=== PATIENT | male | born 1945 | race Two or more races ===

== ENCOUNTER 2021-03-21 13:19 | Emergency (ER) | payer MEDICARE ==
[~2021-03-21] VITALS: Ht 175.3 cm; Wt 76.2 kg
[2021-03-21 13:28] VITALS: BP 116/59
== END 2021-03-21 14:43 | disposition left against medical advice (07) ==
LOC: EDBD 13:19 → ER 13:19
DX: R79.9 Abnormal finding of blood chemistry, unspecified (principal); Z53.21 Procedure and treatment not carried out due to patient leaving prior to being seen by health care provider
CPT/HCPCS: 71045

== ENCOUNTER 2021-03-22 07:43 | Inpatient (IN) | payer MEDICARE ==
[~2021-03-22] VITALS: Ht 175.3 cm; Wt 34.6 kg
[2021-03-22] VITALS (8 sets, daily range): BP systolic 98–120; BP diastolic 59–69
[2021-03-22] MEDS ORDERED: SODIUM CHLORIDE 0.9% 1,000 ML IVB ONE (09:45)
[2021-03-22 10:30] LABS: Basophils # (auto) 0 10 ^3/uL (0-0.2); Eosinophils # (auto) 0 10 ^3/uL (0-0.8); Lymphocytes # (auto) 0.5 10 ^3/uL (0.4-5.4); Mean Corpuscular Hemoglobin 19.5 pg (28.0-32.0); Monocytes # (auto) 0.5 10 ^3/uL (0-1.3); Neutrophils # (auto) 4.7 10 ^3/uL (1.6-8.6); White Blood Cell 5.7 10^3/uL (4.4-10.8)
[2021-03-22 10:33] LABS: INR 1.24 (0.9-1.15); Partial Thromboplastin Time 31.5 sec (23.6-33.0)
[2021-03-22 10:34] LABS: Basophils % (auto) 0.7 % (0.0-2.0); Eosinophils % (auto) 0.8 % (0.0-7.0); Hematocrit 20.2 % (41.0-53.0); Lymphocytes % (auto) 8.6 % (10.0-50.0); Mean Corpuscular Hgb Conc. 31.3 g/dL (32.0-36.0); Mean Corpuscular Volume 62.2 fL (80.0-100.0); Monocytes % (auto) 8.1 % (0.0-12.0); Neutrophils % (auto) 81.8 % (37.0-80.0); Nucleated Red Blood Cells % 0.4 %; Red Blood Cells 3.25 10^6/uL (4.5-5.90); Red Cell Distribution Width 19.4 % (11.8-14.3)
[2021-03-22 11:04] LABS: Albumin 4.1 g/dL (3.4-5.0); Calcium 9.6 mg/dL (8.5-10.1); Potassium 3.8 mmol/L (3.5-5.1)
[2021-03-22 11:05] LABS: Hemoglobin 6.3 g/dL (13.5-17.5)
[2021-03-22 11:10] LABS: BUN/Creatinine Ratio 18.5; Bilirubin, Total 1.9 mg/dL (0.2-1.0); Total Protein 6.6 g/dL (6.4-8.2)
[2021-03-22 11:41] LABS: Magnesium 2.6 mg/dL (1.6-2.6)
[2021-03-22 12:48] LABS: Urine Bacteria NONE SEEN /hpf (None Seen); Urine Blood TRACE /uL (Negative); Urine Hyaline Cast FEW /lpf (0 - 2); Urine Specific Gravity 1.008 (1.001-1.035); Urine WBC 1 /hpf (0 - 3)
[2021-03-22] MEDS ORDERED: ADENOSINE 6 MG/2 ML INJ IV ONE ×3 (21:15→22:00)
[2021-03-22] MEDS ORDERED: dilTIAZem 25 MG/5 ML VIAL IV ONE (22:30)
[2021-03-22 22:53] LABS: Basophils # (auto) 0 10 ^3/uL (0-0.2); Eosinophils # (auto) 0 10 ^3/uL (0-0.8); Hematocrit 21.8 % (41.0-53.0); Hemoglobin 7.2 g/dL (13.5-17.5); Lymphocytes # (auto) 0.4 10 ^3/uL (0.4-5.4); Monocytes # (auto) 0.3 10 ^3/uL (0-1.3); Neutrophils # (auto) 2.8 10 ^3/uL (1.6-8.6); White Blood Cell 3.6 10^3/uL (4.4-10.8)
[2021-03-22 22:55] LABS: Basophils % (auto) 0.9 % (0.0-2.0); Lymphocytes % (auto) 11.6 % (10.0-50.0); Mean Corpuscular Hemoglobin 21.3 pg (28.0-32.0); Mean Corpuscular Volume 64.7 fL (80.0-100.0); Monocytes % (auto) 7.5 % (0.0-12.0); Nucleated Red Blood Cells % 0.4 %; Red Blood Cells 3.37 10^6/uL (4.5-5.90)
[2021-03-22 22:56] LABS: Red Cell Distribution Width 24.1 % (11.8-14.3)
[2021-03-22] MEDS ORDERED: ACETAMINOPHEN 325 MG TAB PO PRN (23:00)
[2021-03-22] MEDS ORDERED: DOCUSATE SOD 100 MG CAP PO PRN (23:00)
[2021-03-22] MEDS ORDERED: HYDROcodone-ACET 5/325MG TAB PO PRN (23:00)
[2021-03-22] MEDS: dilTIAZem 125mg/125ml BAG KIT 100 ML IV SCH (23:40)
[2021-03-23] MEDS ORDERED: MORPHINE SULFATE INJECTION 2 MG/ML SYRG IV PRN
[2021-03-23] MEDS ORDERED: NITROGLYCERIN 0.4 MG SL TAB SL PRN
[2021-03-23 01:27] LABS: Albumin 3.3 g/dL (3.4-5.0); Calcium 8.1 mg/dL (8.5-10.1); Potassium 3.8 mmol/L (3.5-5.1)
[2021-03-23 01:32] LABS: BUN/Creatinine Ratio 16.9; Bilirubin, Total 1.7 mg/dL (0.2-1.0); Total Protein 5.7 g/dL (6.4-8.2)
[2021-03-23] MEDS: SODIUM CHLOR 0.9% PF (SALINE LOCK) 10ML VIAL/SYR IV SCH ×3 (06:20→22:02)
[2021-03-23 07:08] LABS: Basophils # (auto) 0 10 ^3/uL (0-0.2); Basophils % (auto) 0.9 % (0.0-2.0); Eosinophils # (auto) 0 10 ^3/uL (0-0.8); Eosinophils % (auto) 1.2 % (0.0-7.0); Hematocrit 22.2 % (41.0-53.0); Hemoglobin 7.2 g/dL (13.5-17.5); Lymphocytes # (auto) 0.4 10 ^3/uL (0.4-5.4); Lymphocytes % (auto) 10.9 % (10.0-50.0); Mean Corpuscular Hemoglobin 21.2 pg (28.0-32.0); Mean Corpuscular Hgb Conc. 32.4 g/dL (32.0-36.0); Monocytes # (auto) 0.3 10 ^3/uL (0-1.3); Monocytes % (auto) 8.4 % (0.0-12.0); Neutrophils # (auto) 3.2 10 ^3/uL (1.6-8.6); Neutrophils % (auto) 78.6 % (37.0-80.0); Nucleated Red Blood Cells % 0.5 %; Red Blood Cells 3.39 10^6/uL (4.5-5.90)
[2021-03-23 07:13] LABS: Mean Corpuscular Volume 65.4 fL (80.0-100.0); Red Cell Distribution Width 24.5 % (11.8-14.3)
[2021-03-23] MEDS: ASCORBIC ACID 500 MG TAB PO SCH (10:00)
[2021-03-23] MEDS: FAMOTIDINE (10MG/ML) 2ML VL IV SCH (10:00)
[2021-03-23] MEDS ORDERED: METOPROLOL TARTRATE 25 MG TAB PO SCH (10:00)
[2021-03-23] MEDS: MULTIPLE VITAMIN TAB PO SCH (10:00)
[2021-03-23] MEDS: ZINC SULFATE 220mg CAP or TAB PO SCH (10:00)
[2021-03-23] MEDS: HEPARIN SODIUM (PORCINE) 5000 UNITS/ML 1ML VIAL SC SCH ×2 (10:52→22:00)
[2021-03-23] MEDS: ASPirin 81 mg TAB PO SCH (10:53)
[2021-03-23] MEDS: dilTIAZem 125mg/125ml BAG KIT 100 ML IV SCH (14:22)
[2021-03-23 15:55] VITALS: BP 108/69
[2021-03-23 16:15] VITALS: BP 107/64
[2021-03-23 16:45] VITALS: BP 106/71
[2021-03-23 17:45] VITALS: BP 106/68
[2021-03-23] MEDS: TAMSULOSIN HYDROCHLORIDE 0.4 MG CAP PO SCH (18:42)
[2021-03-23 23:19] LABS: Basophils # (auto) 0 10 ^3/uL (0-0.2); Eosinophils # (auto) 0 10 ^3/uL (0-0.8); Lymphocytes # (auto) 0.4 10 ^3/uL (0.4-5.4); Monocytes # (auto) 0.4 10 ^3/uL (0-1.3); Neutrophils # (auto) 3.7 10 ^3/uL (1.6-8.6); Nucleated Red Blood Cells % 0.3 %; White Blood Cell 4.5 10^3/uL (4.4-10.8)
[2021-03-23 23:21] LABS: Basophils % (auto) 0.5 % (0.0-2.0); Eosinophils % (auto) 0.4 % (0.0-7.0); Hematocrit 25.5 % (41.0-53.0); Hemoglobin 8.5 g/dL (13.5-17.5); Lymphocytes % (auto) 8.5 % (10.0-50.0); Mean Corpuscular Hemoglobin 22.1 pg (28.0-32.0); Mean Corpuscular Hgb Conc. 33.2 g/dL (32.0-36.0); Mean Corpuscular Volume 66.4 fL (80.0-100.0); Monocytes % (auto) 8.5 % (0.0-12.0); Neutrophils % (auto) 82.1 % (37.0-80.0); Red Blood Cells 3.84 10^6/uL (4.5-5.90)
[2021-03-23 23:23] LABS: Red Cell Distribution Width 25.6 % (11.8-14.3)
[2021-03-24] MEDS: ASCORBIC ACID 500 MG TAB PO SCH ×3 (00:34→23:50)
[2021-03-24] MEDS: dilTIAZem 125mg/125ml BAG KIT 100 ML IV SCH ×2 (02:43→07:03)
[2021-03-24] MEDS ORDERED: TEMAZEPAM 15 MG CAP PO ONE ×2 (03:15→23:15)
[2021-03-24] MEDS: SODIUM CHLOR 0.9% PF (SALINE LOCK) 10ML VIAL/SYR IV SCH ×3 (06:00→23:50)
[2021-03-24] MEDS ORDERED: DIGOXIN (250MCG/ML) 2 ML AMPULE IV ONE (09:45)
[2021-03-24] MEDS ORDERED: TEST2.5G TOP (10:10)
[2021-03-24] MEDS ORDERED: TAMS0.4C36 PO (10:10)
[2021-03-24] MEDS ORDERED: FURO40TA4 PO (10:10)
[2021-03-24] MEDS ORDERED: SERT50TA19 PO (10:10)
[2021-03-24] MEDS ORDERED: MET25T PO (10:10)
[2021-03-24] MEDS ORDERED: ALLO300T2 PO (10:10)
[2021-03-24] MEDS ORDERED: FOLI1TAB6 PO (10:10)
[2021-03-24] MEDS ORDERED: POTA1TAB64 PO (10:10)
[2021-03-24 10:11] LABS: Basophils # (auto) 0 10 ^3/uL (0-0.2); Eosinophils # (auto) 0.1 10 ^3/uL (0-0.8); Eosinophils % (auto) 1.1 % (0.0-7.0); Hematocrit 30.5 % (41.0-53.0); Hemoglobin 8.8 g/dL (13.5-17.5); Lymphocytes # (auto) 0.3 10 ^3/uL (0.4-5.4); Lymphocytes % (auto) 7.2 % (10.0-50.0); Mean Corpuscular Hemoglobin 20.9 pg (28.0-32.0); Mean Corpuscular Hgb Conc. 28.9 g/dL (32.0-36.0); Mean Corpuscular Volume 72.2 fL (80.0-100.0); Monocytes # (auto) 0.4 10 ^3/uL (0-1.3); Monocytes % (auto) 9.5 % (0.0-12.0); Neutrophils # (auto) 3.8 10 ^3/uL (1.6-8.6); Neutrophils % (auto) 81.2 % (37.0-80.0); Nucleated Red Blood Cells % 0.4 %; Red Blood Cells 4.22 10^6/uL (4.5-5.90); White Blood Cell 4.7 10^3/uL (4.4-10.8)
[2021-03-24 10:19] LABS: Red Cell Distribution Width 26.5 % (11.8-14.3)
[2021-03-24 10:35] LABS: % Iron Saturation 32.3 % (20-55); Albumin 3.8 g/dL (3.4-5.0); Calcium 8.7 mg/dL (8.5-10.1); Magnesium 3.2 mg/dL (1.6-2.6); Potassium 3.7 mmol/L (3.5-5.1)
[2021-03-24 10:38] LABS: BUN/Creatinine Ratio 15.4; Bilirubin, Total 2.4 mg/dL (0.2-1.0); Total Protein 6.6 g/dL (6.4-8.2)
[2021-03-24] MEDS: HEPARIN SODIUM (PORCINE) 5000 UNITS/ML 1ML VIAL SC SCH ×2 (11:26→23:52)
[2021-03-24] MEDS: ASPirin 81 mg TAB PO SCH (11:27)
[2021-03-24] MEDS: ZINC SULFATE 220mg CAP or TAB PO SCH (12:43)
[2021-03-24] MEDS: MULTIPLE VITAMIN TAB PO SCH (12:43)
[2021-03-24] MEDS: FAMOTIDINE (10MG/ML) 2ML VL IV SCH (12:43)
[2021-03-24] MEDS: ONDANSETRON HCL 4 MG/2 ML VIAL IV PRN (13:27)
[2021-03-24] MEDS: SODIUM CHLORIDE 0.9% 1,000 ML IV SCH (13:30)
[2021-03-24] MEDS ORDERED: AMIODARONE HCL 150 MG in D5W 5% 100 ML IV ONE (16:45)
[2021-03-24] MEDS ORDERED: AMIODARONE 450mg/250ml AE 250 ML IV SCH (17:00)
[2021-03-24] MEDS: TAMSULOSIN HYDROCHLORIDE 0.4 MG CAP PO SCH (18:16)
[2021-03-24] MEDS: AMIODARONE 450mg/250ml AE 250 ML IV SCH (23:00)
[2021-03-25] MEDS: SODIUM CHLORIDE 0.9% 1,000 ML IV SCH ×2 (03:25→20:05)
[2021-03-25] MEDS ORDERED: ALBUMIN 5% 250 ML IV ONE (05:30)
[2021-03-25] MEDS: SODIUM CHLOR 0.9% PF (SALINE LOCK) 10ML VIAL/SYR IV SCH ×3 (05:34→22:00)
[2021-03-25 07:26] LABS: Calcium 8.6 mg/dL (8.5-10.1); Potassium 3.8 mmol/L (3.5-5.1)
[2021-03-25 07:29] LABS: BUN/Creatinine Ratio 15.9
[2021-03-25] MEDS: ASPirin 81 mg TAB PO SCH ×2 (10:00→10:15)
[2021-03-25] MEDS: HEPARIN SODIUM (PORCINE) 5000 UNITS/ML 1ML VIAL SC SCH ×3 (10:00→22:00)
[2021-03-25] MEDS: FAMOTIDINE (10MG/ML) 2ML VL IV SCH (10:15)
[2021-03-25] MEDS: ZINC SULFATE 220mg CAP or TAB PO SCH (10:15)
[2021-03-25] MEDS: MULTIPLE VITAMIN TAB PO SCH (10:15)
[2021-03-25] MEDS: ASCORBIC ACID 500 MG TAB PO SCH ×2 (10:16→22:30)
[2021-03-25] MEDS: dilTIAZem 125mg/125ml BAG KIT 100 ML IV SCH (11:15)
[2021-03-25] MEDS: TAMSULOSIN HYDROCHLORIDE 0.4 MG CAP PO SCH (17:38)
[2021-03-25] MEDS: SERTRALINE HCL 50 MG TAB PO SCH (20:02)
[2021-03-25] MEDS: TEMAZEPAM 15 MG CAP PO SCH (22:30)
[2021-03-25] MEDS: AMIODARONE 450mg/250ml AE 250 ML IV SCH (23:15)
[2021-03-26] MEDS: SODIUM CHLOR 0.9% PF (SALINE LOCK) 10ML VIAL/SYR IV SCH ×3 (06:05→21:58)
[2021-03-26] MEDS: dilTIAZem 125mg/125ml BAG KIT 100 ML IV SCH (07:15)
[2021-03-26 07:57] LABS: Potassium 3.9 mmol/L (3.5-5.1)
[2021-03-26 08:12] LABS: BUN/Creatinine Ratio 14.9; Calcium 8.6 mg/dL (8.5-10.1)
[2021-03-26] MEDS: ONDANSETRON HCL 4 MG/2 ML VIAL IV PRN (08:34)
[2021-03-26 08:36] LABS: Basophils # (auto) 0 10 ^3/uL (0-0.2); Eosinophils # (auto) 0.1 10 ^3/uL (0-0.8); Hematocrit 24.2 % (41.0-53.0); Monocytes # (auto) 0.3 10 ^3/uL (0-1.3); Neutrophils # (auto) 2.5 10 ^3/uL (1.6-8.6); White Blood Cell 3.3 10^3/uL (4.4-10.8)
[2021-03-26 08:38] LABS: Basophils % (auto) 1.1 % (0.0-2.0); Eosinophils % (auto) 1.9 % (0.0-7.0); Hemoglobin 7.8 g/dL (13.5-17.5); Lymphocytes # (auto) 0.4 10 ^3/uL (0.4-5.4); Lymphocytes % (auto) 11.8 % (10.0-50.0); Mean Corpuscular Hemoglobin 21.6 pg (28.0-32.0); Mean Corpuscular Hgb Conc. 32.1 g/dL (32.0-36.0); Mean Corpuscular Volume 67.1 fL (80.0-100.0); Monocytes % (auto) 9.9 % (0.0-12.0); Neutrophils % (auto) 75.3 % (37.0-80.0); Nucleated Red Blood Cells % 0.3 %
[2021-03-26 08:45] LABS: Red Cell Distribution Width 26.3 % (11.8-14.3)
[2021-03-26 08:54] LABS: Albumin 3.4 g/dL (3.4-5.0); Bilirubin, Direct 0.8 mg/dL (0-0.2)
[2021-03-26 08:57] LABS: Bilirubin, Total 1.7 mg/dL (0.2-1.0); Total Protein 5.8 g/dL (6.4-8.2)
[2021-03-26] MEDS: ASPirin 81 mg TAB PO SCH (10:00)
[2021-03-26] MEDS: HEPARIN SODIUM (PORCINE) 5000 UNITS/ML 1ML VIAL SC SCH ×2 (10:00→21:59)
[2021-03-26] MEDS: ZINC SULFATE 220mg CAP or TAB PO SCH (10:00)
[2021-03-26] MEDS: FAMOTIDINE (10MG/ML) 2ML VL IV SCH (10:04)
[2021-03-26] MEDS: MULTIPLE VITAMIN TAB PO SCH (10:04)
[2021-03-26] MEDS: ASCORBIC ACID 500 MG TAB PO SCH (10:05)
[2021-03-26] MEDS ORDERED: OMNIPAQUE ORAL SOLN 500ml 12mg/ml PO ONE (12:42)
[2021-03-26] MEDS: SODIUM CHLORIDE 0.9% 1,000 ML IV SCH (12:45)
[2021-03-26] MEDS ORDERED: FUROSEMIDE 20 MG/2 ML VIAL IV ONE (15:15)
[2021-03-26] MEDS: AMIODARONE 450mg/250ml AE 250 ML IV SCH (15:42)
[2021-03-26] MEDS ORDERED: dilTIAZem 25 MG/5 ML VIAL IV ONE (17:30)
[2021-03-26] MEDS: TAMSULOSIN HYDROCHLORIDE 0.4 MG CAP PO SCH (20:56)
[2021-03-26] MEDS: SERTRALINE HCL 50 MG TAB PO SCH (20:56)
[2021-03-26] MEDS: METOPROLOL TARTRATE 25 MG TAB PO SCH (22:03)
[2021-03-26] MEDS: TEMAZEPAM 15 MG CAP PO SCH (22:03)
[2021-03-27] MEDS: dilTIAZem 125mg/125ml BAG KIT 100 ML IV SCH ×2 (03:15→23:15)
[2021-03-27 05:29] LABS: Basophils # (auto) 0 10 ^3/uL (0-0.2); Eosinophils # (auto) 0 10 ^3/uL (0-0.8); Eosinophils % (auto) 0.4 % (0.0-7.0); Lymphocytes # (auto) 0.3 10 ^3/uL (0.4-5.4); Lymphocytes % (auto) 6.2 % (10.0-50.0); Monocytes # (auto) 0.5 10 ^3/uL (0-1.3); Neutrophils # (auto) 4.5 10 ^3/uL (1.6-8.6); Red Blood Cells 3.54 10^6/uL (4.5-5.90)
[2021-03-27 05:33] LABS: Basophils % (auto) 0.2 % (0.0-2.0); Hematocrit 23.7 % (41.0-53.0); Hemoglobin 7.7 g/dL (13.5-17.5); Mean Corpuscular Hemoglobin 21.7 pg (28.0-32.0); Mean Corpuscular Hgb Conc. 32.4 g/dL (32.0-36.0); Neutrophils % (auto) 84.2 % (37.0-80.0); Nucleated Red Blood Cells % 0.2 %; White Blood Cell 5.3 10^3/uL (4.4-10.8)
[2021-03-27 05:39] LABS: Albumin 3.4 g/dL (3.4-5.0); Calcium 8.3 mg/dL (8.5-10.1); Magnesium 3.2 mg/dL (1.6-2.6); Potassium 4.2 mmol/L (3.5-5.1)
[2021-03-27 05:42] LABS: BUN/Creatinine Ratio 15.2; Bilirubin, Total 1.9 mg/dL (0.2-1.0); Phosphorus 2.6 mg/dL (2.5-4.90); Total Protein 5.8 g/dL (6.4-8.2)
[2021-03-27 05:56] LABS: Red Cell Distribution Width 25.9 % (11.8-14.3)
[2021-03-27] MEDS: SODIUM CHLOR 0.9% PF (SALINE LOCK) 10ML VIAL/SYR IV SCH ×3 (07:30→22:07)
[2021-03-27] MEDS: AMIODARONE 450mg/250ml AE 250 ML IV SCH (08:05)
[2021-03-27] MEDS: ASPirin 81 mg TAB PO SCH (10:00)
[2021-03-27] MEDS: FUROSEMIDE 20 MG/2 ML VIAL IV SCH (10:25)
[2021-03-27] MEDS: MULTIPLE VITAMIN TAB PO SCH (10:26)
[2021-03-27] MEDS: FAMOTIDINE (10MG/ML) 2ML VL IV SCH (10:26)
[2021-03-27] MEDS: METOPROLOL TARTRATE 25 MG TAB PO SCH ×2 (10:30→22:09)
[2021-03-27] MEDS: TAMSULOSIN HYDROCHLORIDE 0.4 MG CAP PO SCH (19:00)
[2021-03-27] MEDS: SERTRALINE HCL 50 MG TAB PO SCH (20:03)
[2021-03-27] MEDS: TEMAZEPAM 15 MG CAP PO SCH (22:07)
[2021-03-28] MEDS ORDERED: AMIODARONE 450mg/250ml AE 250 ML IV SCH (04:00)
[2021-03-28] MEDS: SODIUM CHLOR 0.9% PF (SALINE LOCK) 10ML VIAL/SYR IV SCH (06:12)
[2021-03-28 11:05] LABS: Basophils # (auto) 0 10 ^3/uL (0-0.2); Eosinophils # (auto) 0 10 ^3/uL (0-0.8); Hemoglobin 8.3 g/dL (13.5-17.5); Lymphocytes # (auto) 0.3 10 ^3/uL (0.4-5.4); Lymphocytes % (auto) 3.8 % (10.0-50.0); Monocytes # (auto) 0.9 10 ^3/uL (0-1.3); Neutrophils # (auto) 7.8 10 ^3/uL (1.6-8.6); Neutrophils % (auto) 85.7 % (37.0-80.0); Nucleated Red Blood Cells % 0.1 %; White Blood Cell 9.1 10^3/uL (4.4-10.8)
[2021-03-28 11:07] LABS: Basophils % (auto) 0.4 % (0.0-2.0); Eosinophils % (auto) 0.3 % (0.0-7.0); Hematocrit 25.7 % (41.0-53.0); Mean Corpuscular Hemoglobin 21.7 pg (28.0-32.0); Mean Corpuscular Hgb Conc. 32.5 g/dL (32.0-36.0); Monocytes % (auto) 9.8 % (0.0-12.0); Red Blood Cells 3.85 10^6/uL (4.5-5.90)
[2021-03-28 11:12] LABS: Mean Corpuscular Volume 66.7 fL (80.0-100.0)
[2021-03-28 11:30] LABS: BUN/Creatinine Ratio 16.7; Calcium 8.3 mg/dL (8.5-10.1); Potassium 3.9 mmol/L (3.5-5.1)
[2021-03-28] MEDS: MULTIPLE VITAMIN TAB PO SCH (11:30)
[2021-03-28] MEDS: FAMOTIDINE (10MG/ML) 2ML VL IV SCH (11:30)
[2021-03-28] MEDS: METOPROLOL TARTRATE 25 MG TAB PO SCH (11:30)
[2021-03-28] MEDS: FUROSEMIDE 20 MG/2 ML VIAL IV SCH (11:34)
[2021-03-28] MEDS ORDERED: MET25T PO (13:05)
[2021-03-28 14:30] VITALS: BP 120/60
== END 2021-03-28 14:20 | disposition home or self-care (01) | DRG 808 ==
LOC: ER 07:43 → TELE 23:58
PROVIDERS: ADMIT Nurse Practitioner Family; ATTEND Internal Medicine
PROC: 30233N1 Transfusion of Nonautologous Red Blood Cells into Peripheral Vein, Percutaneous Approach (ICD-10-PCS; principal; 2021-03-22)
DX: D61.9 Aplastic anemia, unspecified (principal); I50.23 Acute on chronic systolic (congestive) heart failure; J96.01 Acute respiratory failure with hypoxia; N17.9 Acute kidney failure, unspecified; I47.1 Supraventricular tachycardia; I13.0 Hypertensive heart and chronic kidney disease with heart failure and stage 1 through stage 4 chronic kidney disease, or unspecified chronic kidney disease; D56.3 Thalassemia minor; E83.42 Hypomagnesemia; R73.9 Hyperglycemia, unspecified; N40.0 Benign prostatic hyperplasia without lower urinary tract symptoms; I49.9 Cardiac arrhythmia, unspecified; Z20.822 Contact with and (suspected) exposure to COVID-19; I48.91 Unspecified atrial fibrillation; M10.9 Gout, unspecified; K64.9 Unspecified hemorrhoids; Z98.1 Arthrodesis status; Z95.2 Presence of prosthetic heart valve; N18.32 Chronic kidney disease, stage 3b
CPT/HCPCS: 36415; 36430; 71045; 71250; 74176; 80048; 80053; 80076; 80162; 81001; 82270; 83010; 83036; 83540; 83550; 83615; 83690; 83735; 83880; 84100; 84443; 84484; 85025; 85045; 85379; 85610; 85730; 86850; 86880; 86900; 86901; 86920; 87426; 93005; 93306; 96361; 96374; 96375; G0378; J0153; J2405; J3490; J7060